=== PATIENT | female | born 1985 | race Caucasian/White ===

== ENCOUNTER 2018-08-30 11:56 | Day surgery (SDC) | payer BC, MEDICAID, OTHER ==
[2018-08-30 12:39] LABS: ABS Basophils 0.1 10^3/ul (0-0.2); ABS Eosinophils 0.1 10^3/ul (0-0.6); ABS Lymphocytes 1.6 10^3/ul (1.0-4.8); ABS Monocytes 0.5 10^3/ul (0-0.8); ABS Neutrophils 7.2 10^3/ul (1.5-7.7); Eosinophil % 0.9 %; Hematocrit 40 % (35-47); Hemoglobin 13.8 g/dL (12.0-16.0); Lymphocyte % 16.7 %; Mean Corpuscular HGB Conc 35 g/dL (31-36); Mean Corpuscular Hemoglobin 32 pg (27-31); Mean Corpuscular Volume 92 fL (80-97); Mean Platelet Volume 7.1 fL (7.4-10.4); Platelet Count 254 10^3/uL (150-450); Red Blood Count 4.31 10^6 /uL (3.70-4.87); Red Cell Distribution Width 13 % (10-15); White Blood Count 9.5 10^3/uL (3.5-10.8)
[2018-08-30 13:03] LABS: Albumin 4.1 g/dL (3.2-5.2); Albumin/Globulin Ratio 1.6 (1-3); BUN/Creatinine Ratio 18.8 (8-20); Calcium 9.7 mg/dL (8.6-10.3); EGFR African American 117.8 (>60); EGFR Non-African American 97.4 (>60); Globulin 2.5 g/dL (2-4); Potassium 4.2 mmol/L (3.5-5.0); Total Bilirubin 0.7 mg/dL (0.2-1.0); Total Protein 6.6 g/dL (6.4-8.9)
[2018-08-30] MEDS ORDERED: NS 0.9% 1000 ML** 1,000 ML IV ONE (13:29)
[2018-08-30 14:33] LABS: Urine Appearance Clear; Urine Bacteria Absent (Absent); Urine Bilirubin Negative (Negative); Urine Blood 3+ (Negative); Urine Color Colorless; Urine Glucose Negative (Negative); Urine Ketones Negative (Negative); Urine Nitrite Negative (Negative); Urine Protein Negative (Negative); Urine Red Blood Cell Trace(0-2/hpf) (Absent); Urine Specific Gravity 1.002 (1.010-1.030); Urine Squamous Epithelial Cell Present (Absent); Urine Urobilinogen Negative (Negative); Urine White Blood Cell Trace(0-5/hpf) (Absent)
[2018-08-30] MEDS ORDERED: Bupivacaine 0.5% W/EPI SDV* 30 ML VIAL ONE (14:58)
--- NOTE | 2018-08-30 15:16 | ED ---
- HPI Summary HPI Summary: This patient is a 32-year-old female who presents to the ED with concern for miscarriage. She states she has been spotting for approximately 1 week since she has known she was . She denies any clots. Last menstrual period July 19, 2018. She states she has a dull ache in the lower abdomen, denies any worsening severity of pain. She denies any other symptoms, including fevers, sweats, chills, nausea, vomiting, diarrhea. - History of Current Complaint Chief Complaint: EDOBProblems Stated Complaint: / BLEEDING PER PT Time Seen by Provider: 08/30/18 13:02 Hx Obtained From: Patient Chief Complaint: Concern for Embryonic Dem Onset/Duration: Started Days Ago Timing: Constant Severity: Moderate Current Severity: Moderate Pain Intensity: 3 Location of Pain: None Character: Cramping Associated Signs and Symptoms: Positive: Vaginal Bleeding or Discharge - Allergies/Home Medications Allergies/Adverse Reactions: Allergies Allergy/AdvReac Type Severity Reaction Status Date / Time Sulfa (Sulfonamide Allergy Hives Verified 08/30/18 12:00 Antibiotics) Fluoride Allergy Rash Uncoded 08/30/18 13:34 Home Medications: Home Medications NK [No Home Medications Reported] 08/30/18 [History Confirmed 08/30/18] PMH/Surg Hx/FS Hx/Imm Hx Previously Healthy: Yes - Immunization History Hx Pertussis Vaccination: No Immunizations Up to Date: Yes Infectious Disease History: No Infectious Disease History: Denies: Traveled Outside the [place] in Last 30 Days - Social History Occupation: Employed Full-time Lives: With Family Alcohol Use: None Hx Substance Use: No Substance Use Type: Reports: None Hx Tobacco Use: No Smoking Status (MU): Never Smoked Tobacco Review of Systems Constitutional: Negative Negative: Fever, Chills, Fatigue, Skin Diaphoresis Negative: Palpitations, Chest Pain Negative: Shortness Of Breath, Cough Negative: Abdominal Pain, Vomiting, Diarrhea, Nausea Genitourinary: Negative Positive: no symptoms reported, see HPI Negative: Arthralgia, Myalgia Skin: Negative All Other Systems Reviewed And Are Negative: Yes Physical Exam - Physical Exam Triage Information Reviewed: Yes Vital Signs Reviewed: Yes Appearance: Positive: Well-Appearing, Well-Nourished Skin: Positive: Warm, Skin Color Reflects Adequate Perfusion Head/Face: Positive: Normal Head/Face Inspection Eyes: Positive: EOMI, Conjunctiva Clear Neck: Positive: Supple, No Lymphadenopathy Respiratory/Lung Sounds: Positive: Clear to Auscultation, Breath Sounds Present Cardiovascular: Positive: RRR, Pulses are Symmetrical in both Upper and Lower Extremities Bowel Sounds: Positive: Present Musculoskeletal: Positive: Normal, Strength/ROM Intact Neurological: Positive: Sensory/Motor Intact, Alert, Oriented to Person Place, Time, Speech Normal Psychiatric: Positive: Affect/Mood Appropriate AVPU Assessment: Alert Diagnostics - Vital Signs Vital Signs Temp Pulse Resp BP Pulse Ox 08/30/18 13:59 126/96 08/30/18 13:29 113/61 08/30/18 12:59 123/71 08/30/18 11:57 98.8 F 89 18 130/84 100 - Laboratory Lab Results: Lab Results 08/30/18 08/30/18 08/30/18 Range/Units 12:28 12:28 12:28 WBC 9.5 (3.5-10.8) 10^3/uL RBC 4.31 (3.70-4.87) 10^6 /uL Hgb 13.8 (12.0-16.0) g/dL Hct 40 (35-47) % MCV 92 (80-97) fL MCH 32 H (27-31) pg MCHC 35 (31-36) g/dL RDW 13 (10-15) % Plt Count 254 (150-450) 10^3/uL MPV 7.1 L (7.4-10.4) fL Neut % (Auto) 76.1 % Lymph % (Auto) 16.7 % [place] % (Auto) 5.4 % Eos % (Auto) 0.9 % Baso % (Auto) 0.9 % Absolute Neuts (auto) 7.2 (1.5-7.7) 10^3/ul Absolute Lymphs (auto) 1.6 (1.0-4.8) 10^3/ul Absolute Monos (auto) 0.5 (0-0.8) 10^3/ul Absolute Eos (auto) 0.1 (0-0.6) 10^3/ul Absolute Basos (auto) 0.1 (0-0.2) 10^3/ul Absolute Nucleated RBC 0.0 10^3/ul Nucleated RBC % 0.0 APTT 28.8 (26.0-38.0) seconds Sodium 137 (135-145) mmol/L Potassium 4.2 (3.5-5.0) mmol/L Chloride 104 (101-111) mmol/L Carbon Dioxide 28 (22-32) mmol/L Anion Gap 5 (2-11) mmol/L BUN 13 (6-24) mg/dL Creatinine 0.69 (0.51-0.95) mg/dL Est GFR ( Amer) 117.8 (>60) Est GFR (Non-Af Amer) 97.4 (>60) BUN/Creatinine Ratio 18.8 (8-20) Glucose 101 H (70-100) mg/dL Lactic Acid (0.5-2.0) mmol/L Calcium 9.7 (8.6-10.3) mg/dL Total Bilirubin 0.70 (0.2-1.0) mg/dL AST 13 (13-39) U/L ALT 11 (7-52) U/L Alkaline Phosphatase 48 (34-104) U/L Total Protein 6.6 (6.4-8.9) g/dL Albumin 4.1 (3.2-5.2) g/dL Globulin 2.5 (2-4) g/dL Albumin/Globulin Ratio 1.6 (1-3) Beta HCG, Quant 2919.00 mIU/mL Urine Color Urine Appearance Urine pH (5-9) Ur Specific [place] (1.010-1.030) Urine Protein (Negative) Urine Ketones (Negative) Urine Blood (Negative) Urine Nitrate (Negative) Urine Bilirubin (Negative) Urine Urobilinogen (Negative) Ur Leukocyte Esterase (Negative) Urine WBC (Auto) (Absent) Urine RBC (Auto) (Absent) Ur Squamous Epith Cells (Absent) Urine Bacteria (Absent) Urine Glucose (Negative) Blood Type Antibody Screen 08/30/18 08/30/18 08/30/18 Range/Units 12:28 12:28 14:07 WBC (3.5-10.8) 10^3/uL RBC (3.70-4.87) 10^6 /uL Hgb (12.0-16.0) g/dL Hct (35-47) % MCV (80-97) fL MCH (27-31) pg MCHC (31-36) g/dL RDW (10-15) % Plt Count (150-450) 10^3/uL MPV (7.4-10.4) fL Neut % (Auto) % Lymph % (Auto) % [place] % (Auto) % Eos % (Auto) % Baso % (Auto) % Absolute Neuts (auto) (1.5-7.7) 10^3/ul Absolute Lymphs (auto) (1.0-4.8) 10^3/ul Absolute Monos (auto) (0-0.8) 10^3/ul Absolute Eos (auto) (0-0.6) 10^3/ul Absolute Basos (auto) (0-0.2) 10^3/ul Absolute Nucleated RBC 10^3/ul Nucleated RBC % APTT (26.0-38.0) seconds Sodium (135-145) mmol/L Potassium (3.5-5.0) mmol/L Chloride (101-111) mmol/L Carbon Dioxide (22-32) mmol/L Anion Gap (2-11) mmol/L BUN (6-24) mg/dL Creatinine (0.51-0.95) mg/dL Est GFR ( Amer) (>60) Est GFR (Non-Af Amer) (>60) BUN/Creatinine Ratio (8-20) Glucose (70-100) mg/dL Lactic Acid 0.8 (0.5-2.0) mmol/L Calcium (8.6-10.3) mg/dL Total Bilirubin (0.2-1.0) mg/dL AST (13-39) U/L ALT (7-52) U/L Alkaline Phosphatase (34-104) U/L Total Protein (6.4-8.9) g/dL Albumin (3.2-5.2) g/dL Globulin (2-4) g/dL Albumin/Globulin Ratio (1-3) Beta HCG, Quant mIU/mL Urine Color Colorless Urine Appearance Clear Urine pH 6.0 (5-9) Ur Specific [place] 1.002 L (1.010-1.030) Urine Protein Negative (Negative) Urine Ketones Negative (Negative) Urine Blood 3+ A (Negative) Urine Nitrate Negative (Negative) Urine Bilirubin Negative (Negative) Urine Urobilinogen Negative (Negative) Ur Leukocyte Esterase Negative (Negative) Urine WBC (Auto) Trace(0-5/hpf) (Absent) Urine RBC (Auto) Trace(0-2/hpf) (Absent) Ur Squamous Epith Cells Present A (Absent) Urine Bacteria Absent (Absent) Urine Glucose Negative (Negative) Blood Type A Positive Antibody Screen Negative Result Diagrams: 08/30/18 12:28 08/30/18 12:28 Lab Statement: Any lab studies that have been ordered have been reviewed, and results considered in the medical decision making process. Course/Dx - Course Course Of Treatment: During the course of treatment, the patient is evaluated for spotting during . Labs obtained which show a hCG of 2919. Transvaginal ultrasound shows a likely right sided ectopic . Discussed case with Dr. Stratton, CONFERENCE COORDINATOR who agrees to come see patient in the ED. Patient will be admitted to CONFERENCE COORDINATOR. She is otherwise healthy, takes no medications. Last by mouth intake was approximately 3 hours ago. - Diagnoses Provider Diagnoses: Ectopic - Provider Notifications Discussed Care Of Patient With: Nhan Stratton Instructed by Provider To: MD Will See In ED Discharge - Sign-Out/Discharge Documenting (check all that apply): Patient Departure All imaging exams completed and their final reports reviewed: Yes Patient Received Moderate/Deep Sedation with Procedure: No - Discharge Plan Condition: Fair Disposition: ADMITTED TO [facility] - Billing Disposition and Condition Condition: FAIR Disposition: Admitted to [facility]
[2018-08-30] MEDS ORDERED: fentaNYL* 50 MCG/ML 2 ML VIAL (100 MCG VIAL) ONE ×2 (15:23→16:55)
[2018-08-30] MEDS ORDERED: Propofol* 10 MG/ML 20 ML BTL ONE (15:23)
[2018-08-30] MEDS ORDERED: Rocuronium* 10 MG/ML VIAL ONE (15:23)
[2018-08-30] MEDS ORDERED: Midazolam* 1 MG/ML 2 ML VIAL (2 MG) ONE (15:23)
[2018-08-30] MEDS ORDERED: Lidocaine 2% PF * 5 ML VIAL ONE (15:37)
[2018-08-30] MEDS ORDERED: Dexamethasone IV* 4 MG/ML 1 ML (4 MG) ONE (15:47)
[2018-08-30] MEDS ORDERED: Glycopyrrolate IV* 0.2 MG/ML 1 ML VIAL ONE ×2 (16:10→16:18)
[2018-08-30] MEDS ORDERED: Atropine 1MG/ML INJ* 1 ML VIAL ONE (16:11)
[2018-08-30] MEDS ORDERED: Ketorolac INJ* 30 MG/ML 1 ML VIAL ONE (16:12)
[2018-08-30] MEDS ORDERED: Ondansetron INJ* 2 MG/ML VIAL ONE ×2 (16:12→16:32)
[2018-08-30] MEDS ORDERED: Neostigmine Methylsulfate* 3 MG/3 ML SYRINGE ONE ×2 (16:17→16:25)
[2018-08-30] MEDS ORDERED: HYDROmorphone INJ1* 1 MG/ML SYRINGE IV PRN (16:35)
[2018-08-30] MEDS ORDERED: oxyCODONE/Acetamin 5/325 MG* TAB PO PRN (16:35)
[2018-08-30] MEDS ORDERED: Naloxone* 0.4 MG/ML 1 ML VIAL IV PRN (16:35)
[2018-08-30] MEDS ORDERED: Scopolamine 1.5 mg* PATCH TRANSDERM PRN (16:35)
[2018-08-30] MEDS ORDERED: fentaNYL* 50 MCG/ML 2 ML VIAL (100 MCG VIAL) IV PRN (16:35)
[2018-08-30] MEDS ORDERED: Ondansetron INJ* 2 MG/ML VIAL IV PRN (16:35)
[2018-08-30] MEDS ORDERED: DiMENhydriNATE IV* 50 MG/ML VIAL IV PUSH PRN (16:35)
[2018-08-30] MEDS ORDERED: oxyCODONE/Acetamin 5/325 MG* TAB ONE (16:55)
[2018-08-30 17:49] VITALS: BP 109/62
--- NOTE | 2018-08-30 21:37 | OP ---
OPERATIVE REPORT: DATE OF OPERATION: 08/30/18 DATE OF : 81 SURGEON: Nhan Stratton MD AGENT PRODUCER: None. ANESTHESIA: General endotracheal tube. PRE-OP DIAGNOSIS: Right ectopic . POST-OP DIAGNOSIS: Right ectopic . OPERATIVE PROCEDURE: Laparoscopy, right salpingectomy. ESTIMATED BLOOD LOSS: Minimal, 200 cc in the pelvis. SPECIMENS: Include right fallopian tube and ectopic. FINDINGS: On laparoscopy, the anterior bladder flap appeared normal. The cul-de- sac appeared juanita l. Both ovaries appeared normal. The left fallopian tube appeared normal. The right fallopian tube was distended with blood and tissue consistent with a right ectopic . There was some adhes ions of the peritoneum on the right mid abdomen near where the cecum would be and the liver surface w as smooth. The gallbladder was nondistended and the bowels appeared normal. DESCRIPTION OF PROCEDURE: The patient was identified, procedure identified as a diagnostic laparosco py, possible right salpingectomy. The patient was taken to the operating room, prepped and draped in the usual fashion in the dorsal lithotomy position under general anesthesia. A sponge stick was maria fernanda maribel in the vagina for manipulation. A small infraumbilical incision was made and the Veress needle w as inserted through this. The abdomen then was insufflated with 15 mmHg and the Veress needle was re moved and a Visiport trocar was inserted. The above findings were noted. A second trocar was placed 2 cm above the pubic symphysis in the midline under direct visualization and a third trocar was place d on the left abdominal side wall under direct visualization. Using the LigaSure, the right fallopian tube was grasped at its fimbriated ends, lifted up and away from the ovary and towards the midline a nd using the LigaSure, the mesovarium was ligated and then incised. This was continued along the mes osalpinx until the portion of ectopic was excised completely. Good hemostasis was verified. Copious irrigation was utilized and suctioned out. The ectopic was then placed in an EndoCatch bag and brou ght out through the umbilical incision. Again the trocar was replaced and copious irrigation was uti lized and suctioned out and all instruments were removed from the abdomen. The abdomen was deflated of CO2. The 5 mm trocar incisions were closed using Indermil. The 10 and 12 mm trocar in the umbili cus was closed deeply using 2-0 Vicryl in a simple fashion and the skin was closed with 4-0 Vicryl in a subcuticular fashion and skin glue was used on this as well. Good hemostasis was verified. Spong e and the stick were removed from the vagina and the patient returned to recovery room in stable cond ition. [id number]/[facility] #: [id number]
[2018-09-02] MEDS ORDERED: Scopolamine PATCH Remove* 1 NOTE MISC PATCH OFF ONE (16:36)
== END 2018-08-30 14:56 | disposition home or self-care (01) ==
LOC: ED 11:56 → OR 11:56 → EDSTATUS 14:07 → AA 14:30 → UNDOADMOB 14:30 → ED 14:56
PROVIDERS: ATTEND Obstetrics & Gynecology
DX: O00.101 Right tubal pregnancy without intrauterine pregnancy (principal); N93.9 Abnormal uterine and vaginal bleeding, unspecified; R10.30 Lower abdominal pain, unspecified
CPT/HCPCS: 36415; 76817; 80053; 81003; 81015; 83605; 84702; 85025; 85730; 86850; 86900; 86901; 87086; 88305; 99283; A9270-GY; J0461; J1100; J1885; J2250; J2405; J2704; J2710; J3010